=== PATIENT | male | born 1985 | race African-American/Black ===

== ENCOUNTER 2024-02-21 06:42 | Emergency (ER) | payer OTHER ==
[2024-02-21 06:48] VITALS: BMI 23.0
[2024-02-21 08:12] LABS: BASO % 0.7 % (0-2.0); EOS % 2.3 % (0-4.5); HEMATOCRIT 41.7 % (35.4-49); HEMOGLOBIN 13.3 GM/dL (11.7-16.9); LYMPH % 46.5 % (8-40); MCH 23.7 pg (25.7-33.7); MCHC 31.8 g/dl (32.0-35.9); MEAN CELL VOLUME 74.7 fl (80-96); MEAN PLT VOLUME 8.4 fl (7.5-11.1); MONO % 11.6 % (3.8-10.2); NEUT % 38.9 % (42.8-82.8); PLATELET COUNT 254 10^3/uL (134-434); RBC 5.59 M/mm3 (4.00-5.60); RDW 15.3 % (11.9-15.9); WHITE BLOOD COUNT 3.9 K/mm3 (4.0-10.0)
[2024-02-21] MEDS ORDERED: FAMOTIDINE 20 MG TABLET ONE (08:14)
[2024-02-21] MEDS ORDERED: PANTOPRAZOLE 40 MG TABLET PO ONE (08:14)
[2024-02-21] MEDS ORDERED: PANTOPRAZOLE 20 MG TABLET PO ONE (08:15)
[2024-02-21 08:18] LABS: POTASSIUM 4.3 mmol/L (3.5-5.1)
[2024-02-21] MEDS: FAMOTIDINE 20 MG TABLET PO ONE (08:18)
[2024-02-21] MEDS: PANTOPRAZOLE 20 MG TABLET PO ONE (08:18)
[2024-02-21 08:20] LABS: CALCIUM 9.2 mg/dL (8.5-10.1)
[2024-02-21 08:21] LABS: ALBUMIN 3.7 g/dl (3.4-5.0); BLOOD UREA NITROGEN 11.3 mg/dL (7-18); MAGNESIUM 2.1 mg/dL (1.8-2.4)
[2024-02-21 08:24] LABS: CREATININE 1.3 mg/dL (0.55-1.3); PHOSPHOROUS 3.5 mg/dL (2.5-4.9)
[2024-02-21 08:25] LABS: BILIRUBIN,TOTAL 0.6 mg/dL (0.2-1); TOT PROT 6.8 g/dl (6.4-8.2)
[2024-02-21] MEDS ORDERED: MAG HYDROX/AL HYDROX/SIMETH 30 ML UNIT-DOSE CUP ONE (08:28)
[2024-02-21] MEDS: MAG HYDROX/AL HYDROX/SIMETH 30 ML UNIT-DOSE CUP PO ONE (08:30)
[2024-02-21 09:44] VITALS: BP 123/77; PULSE 51; RESP 17; TEMP 97.7
== END 2024-02-21 12:32 | disposition home or self-care (01) ==
LOC: JER 06:42
DX: K27.9 Peptic ulcer, site unspecified, unspecified as acute or chronic, without hemorrhage or perforation (principal); N28.1 Cyst of kidney, acquired; R10.13 Epigastric pain; R63.0 Anorexia
CPT/HCPCS: 36415; 74177-TC; 80053; 82272; 83690; 83735; 84100; 84484; 85025; 93005; 93010; 99285-25; Q9967